=== PATIENT | male | born 1985 | race Caucasian/White ===

== ENCOUNTER 2024-08-03 16:17 | Emergency (ER) | payer OTHER, SELFPAY ==
[2024-08-03 16:28] VITALS: BP 137/89; PULSE 99; RESP 16; TEMP 36.6; O2SAT 99
--- NOTE | 2024-08-03 17:13 | ED.UPPEXIN ---
HPI - Extremity Injury (Upper) General Chief Complaint: Extremity Injury, Upper Stated Complaint: R ELBOW PAIN Time Seen by Provider: 08/03/24 16:25 Source: patient and RN notes reviewed Mode of arrival: ambulatory Limitations: no limitations History of Present Illness HPI narrative: 39-year-old male presents [facility] complaining of right elbow pain, redness, swelling. Patient denies any apparent injury. Said he hit his right elbow on something approximately 1 month ago and said he had a wound on it but has since healed. Patient's said 2 days ago he noticed increased redness, swelling, heat, and pain to his right forearm other way up to his right mid tricep. Patient says he 1st noticed the rash on his forearm the progressively got worse up into the mid triceps. Patient denies any significant past medical history. Patient is concerned that is affected. He denies any issues with bending or moving his right elbow, patient denies any fevers, body aches, chills, joint stiffness, or any other symptoms. Related Data Allergies Allergy/AdvReac Type Severity Reaction Status Date / Time No Known Allergies Allergy Verified 08/03/24 16:28 Review of Systems Review of Systems: CONSTITUTIONAL: Denies fever, chills, or sweats. EYES: Denies visual changes, redness, or discharge. ENT: Denies rhinorrhea, congestion, sore throat, or otalgia. CARDIOVASCULAR: Denies chest pain, palpitations, or edema. RESPIRATORY: Denies cough or dyspnea. GASTROINTESTINAL: Denies abdominal pain, nausea, vomiting, or diarrhea. GENITOURINARY: Denies dysuria or hematuria. SKIN: Denies rash or itching. Positive for rash. MUSCULOSKELETAL: Denies back pain, joint pain, joint stiffness, or myalgia. NEUROLOGIC: Denies headache, numbness, or weakness. PSYCHIATRIC: Denies anxiety or depression. All other systems reviewed are negative, except as documented in HPI. PMFSH Comments At the time of my signature, I reviewed and agree with the nursing past medical, surgical, social, and family history. There is no relevant family history pertinent to the patient complaint. Exam Narrative: GENERAL: This is a well-nourished, well-developed adult, in no apparent distress. They are non ill-appearing, nontoxic appearing. HEAD: normocephalic, atraumatic. EYES: Sclera clear/white. Conjunctiva normal. Vision is grossly intact. Extraocular movements intact EARS: External ears normal, NOSE: External nose normal THROAT: Mucous membranes moist, NECK: Neck supple, CARDIOVASCULAR: Regular rate and rhythm RESPIRATORY: Respiratory rate normal, respiratory effort nonlabored, no respiratory distress SKIN: Right arm: Area of erythema and swelling to the posterior proximal forearm extending up to the distal posterior humerus area. No induration, no area of fluctuance. Skin is to touch and tender to palpate. It is measuring approximately 12 cm x 8 cm. Right elbow joint is nontender through full range of motion. Radial pulse 2 +palpable. Neurovascular status intact. Normal sensation. NEURO: awake, alert, and oriented to person, place and time. There were no obvious focal neurologic abnormalities. EXTREMITIES: No joint tenderness, effusion, or edema noted. Course Course Emergency Course: Portions of this record may have been created with voice recognition software Level of Care: Express Care Visit Vital Signs Vital signs: Vital Signs Temperature 97.9 F 08/03/24 16:28 Pulse Rate 99 08/03/24 16:28 Respiratory Rate 16 08/03/24 16:28 Blood Pressure 137/89 08/03/24 16:28 Pulse Oximetry 99 08/03/24 16:28 Temperature 97.9 F 08/03/24 16:28 Pulse Rate 99 08/03/24 16:28 Respiratory Rate 16 08/03/24 16:28 Blood Pressure 137/89 08/03/24 16:28 Pulse Oximetry 99 08/03/24 16:28 Reviewed MDM - Extremity Injury (Upper) MDM Narrative Medical decision making narrative: Patient likely has cellulitis. No joint stiffness, joint move it is nontender with full range of motion. No evidence of joint involvement. Offered ER transfer for further evaluation and through shared decision making, patient elected to try oral antibiotics first. Will treat with cephalexin. Strict return ER precautions discussed with patient especially if symptoms do not improve in the next 1-2 days. Discussed physical exam findings. Advised supportive measures and signs/symptoms to go to the ER. Pt is appropriate for outpt treatment and f/u. Differential Diagnosis Differential diagnosis: Likely other (Cellulitis, eczema, septic joint) Critical Care Time Critical Care Time Critical Care Time: No Discharge Plan Discharge Clinical Impression: Cellulitis of arm, right Patient Disposition: Home Condition: Stable Instructions: Cellulitis (ED) Additional Instructions: Clean with soap and water only; Avoid using alcohol and peroxide. Elevate the affected area if possible You may take Tylenol or ibuprofen as needed for pain or fevers. You may apply ice to the affected area help with swelling 20 minutes at a time. Take antibiotic until it's gone. Please schedule a follow up visit with your personal physician for further evaluation and treatment within 3-5days If you developed worsening redness, swelling, green or yellow discharge, worsening pain, fevers, joint stiffness, inability to move your right elbow, or any other concerns please go to the ER immediately. Patient Language: French Prescriptions: New cephalexin 500 mg capsule 500 mg PO Q6H 7 Days Qty: 28 0RF Follow-up/Referrals: PHYSICIAN,BUILDING PRINCIPAL [Primary Care Provider] - Time of Disposition: 16:53
== END 2024-08-03 16:58 | disposition home or self-care (01) ==
DX: L03.113 Cellulitis of right upper limb (principal)
CPT/HCPCS: 99203; G0463

== ENCOUNTER 2025-02-04 12:32 | Outpatient (CLI) | payer OTHER, SELFPAY ==
[2025-02-04 13:24] LABS: Strep Group A RT-PCR NOT DETECTED (Negative)
== END 2025-02-04 12:33 | disposition home or self-care (01) ==
LOC: CHSLAB 12:33
PROVIDERS: PCP Nurse Practitioner Family; Visit Provider Family Medicine
DX: R53.83 Other fatigue (principal); J02.9 Acute pharyngitis, unspecified
CPT/HCPCS: 87651